=== PATIENT | female | born 1950 | race Caucasian/White ===

== ENCOUNTER 2020-09-28 09:59 | Outpatient (CLI) | payer MEDICARE, SELFPAY ==
--- NOTE | ~2020-09-28 | MR_ITS ---
EXAMINATION: MR cervical spine wo con DATE: 09/28/2020 11:08 INDICATION: Neck pain. TECHNIQUE: Magnetic resonance imaging (MRI) of the cervical spine was performed without intravenous c ontrast. Sequences included sagittal T2-weighted FSE, sagittal T2-weighted FS FSE, sagittal T1-weight ed FSE, axial MERGE, and axial T2-weighted FSE. COMPARISON: None FINDINGS: There is 2 mm anterolisthesis of C3 on C4 and C4 on C5. There is kyphosis of cervical spine . Vertebral body heights are normal. There is moderately decreased disc height at C5-C6 and C6-C7. Th e spinal cord signal intensity is normal. The following disc levels are specifically discussed: C2-C3: The disc does not extend beyond the endplate margin. There is no uncovertebral joint osteoarth ritis. There is moderate right and severe left facet joint osteoarthritis. There is mild left neural foraminal stenosis. There is no central canal stenosis. C3-C4: There is a central protrusion. There is no uncovertebral joint osteoarthritis. There is severe bilateral facet joint osteoarthritis. There is mild bilateral neural foraminal stenosis. There is mi ld central canal stenosis. C4-C5: There is a central protrusion. There is no uncovertebral joint osteoarthritis. There is severe right and mild left facet joint osteoarthritis. There is mild right neural foraminal stenosis. There is mild central canal stenosis. C5-C6: The disc is bulging. There is severe bilateral uncovertebral joint osteoarthritis. There is mi ld bilateral facet joint osteoarthritis. There is mild bilateral neural foraminal stenosis. There is mild central canal stenosis. C6-C7: The disc is bulging. There is severe bilateral uncovertebral joint osteoarthritis. There is no facet joint osteoarthritis. There is mild bilateral neural foraminal stenosis. There is mild central canal stenosis. C7-T1: The disc does not extend beyond the endplate margin. There is no uncovertebral joint osteoarth ritis. There is mild right and moderate left facet joint osteoarthritis. There is no neural foraminal stenosis. There is no central canal stenosis. IMPRESSION: 1. Moderate cervical spondylosis. Reviewed, dictated and finalized at location A. TILE INSTALLATION HELPER
--- NOTE | ~2020-09-28 | MR_ITS ---
EXAMINATION: MR lumbar spine wo con DATE: 09/28/2020 11:09 INDICATION: Low back pain. TECHNIQUE: Magnetic resonance imaging (MRI) of the lumbar spine was performed without intravenous con trast. Sequences included sagittal T2-weighted FSE, sagittal T2-weighted FS FSE, sagittal T1-weighted FSE, and axial T2-weighted FSE. COMPARISON: None FINDINGS: There is 3 mm retrolisthesis of L1 on L2, L2 on L3, and L3 on L4 and 5 mm anterolisthesis o f L5 on S1. There is mild chronic height loss of L5 vertebral body posteriorly. There is severely dec reased disc height at L1-L2, moderately decreased disc at L2-L3, mildly decreased disc height at L3-L 4, and moderately decreased disc height at L4-L5 and L5-S1. The distal spinal cord signal intensity i s normal. The conus medullaris is at L1. The following disc levels are specifically discussed: L1-L2: The disc is bulging. There is moderate bilateral facet joint osteoarthritis. There is mild viki ateral neural foraminal stenosis. There is mild central canal stenosis. L2-L3: The disc is bulging and has an annular fissure. There is moderate bilateral facet joint osteoa rthritis. There is mild bilateral neural foraminal stenosis. There is mild central canal stenosis. L3-L4: The disc is bulging and has an annular fissure. There is moderate bilateral facet joint osteoa rthritis. There is moderate bilateral neural foraminal stenosis. There is mild central canal stenosis . L4-L5: The disc is bulging. There is moderate right and severe left facet joint osteoarthritis. There is moderate bilateral neural foraminal stenosis. There is mild central canal stenosis. L5-S1: The disc is bulging and has an annular fissure. There is severe bilateral facet joint osteoart hritis. There is mild right and moderate left neural foraminal stenosis. There is mild central canal stenosis. IMPRESSION: 1. Severe lumbar spondylosis. Reviewed, dictated and finalized at location A. V BLOCK SAW OPERATOR
== END 2020-09-28 10:00 | disposition home or self-care (01) ==
PROVIDERS: PCP Internal Medicine; Visit Provider Internal Medicine Rheumatology
DX: M54.2 Cervicalgia (principal); M54.5 Low back pain
CPT/HCPCS: 72141; 72148

== ENCOUNTER 2020-11-25 18:39 | Outpatient (CLI) | payer MEDICARE, SELFPAY ==
--- NOTE | ~2020-11-25 | XR_ITS ---
EXAMINATION: XR hand LT 2V, XR wrist LT 2V EXAM DATE: 11/25/2020 19:22 (accession [id number]), 11/25/2020 19:23 (accession [id number]) INDICATION: Left hand, wrist joint pain. TECHNIQUE: Frontal and lateral projections of the left hand. Frontal and lateral projections left wr ist. There is no prior study for comparison. FINDINGS: There is severe left 1st carpometacarpal joint primary osteoarthritis, with 50% shaft width lateral subluxation of the 1st metacarpal bone at this joint. Otherwise mild polyarticular interphal angeal osteoarthritis. There is chronic ulnar minus variance. There are no acute fractures identified . No radiopaque foreign bodies identified. There are no bony erosions identified. IMPRESSION: 1. Severe left 1st CMC joint osteoarthritis, and significant subluxation. 2. Otherwise mild polyarticular phalangeal osteoarthritis. Reviewed, dictated and finalized at location A. COURSE EQUIPMENT OPERATOR IMPRESSION: 1. Severe left 1st CMC joint osteoarthritis, and significant subluxation. 2. Otherwise mild polyarticular phalangeal osteoarthritis.
--- NOTE | ~2020-11-25 | XR_ITS ---
EXAMINATION: XR hand RT 2V, XR wrist RT 2V EXAM DATE: 11/25/2020 19:22 INDICATION: Right hand joint pain. TECHNIQUE: Frontal and lateral projections of the right hand. Frontal lateral projections right wri st. There are no prior studies for comparison. FINDINGS: There is severe right 1st carpometacarpal primary osteoarthritis. There is mild polyartic ular interphalangeal primary osteoarthritis. Suspect scapholunate joint space widening, patient may h ave at least partial dissociation. There is ulnar minus variance. There are no bony erosions identifi ed. There are no acute fractures identified. No radiopaque foreign bodies identified. IMPRESSION: 1. Severe right 1st CMC joint osteoarthritis. 2. Mild interphalangeal polyarticular osteoarthritis. 3. 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 4. Ulnar minus variance. Reviewed, dictated and finalized at location A. S TIE MAKER IMPRESSION: 1. Severe right 1st CMC joint osteoarthritis. 2. Mild interphalangeal polyarticular osteoarthritis. 3. 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 4. Ulnar minus variance.
--- NOTE | ~2020-11-25 | XR_ITS ---
EXAMINATION: XR shoulder LT min 2V EXAM DATE: 11/25/2020 19:24 INDICATION: Initial encounter following injury, with pain of the left shoulder. TECHNIQUE: Left shoulder frontal and Y projections. Comparison is made to prior examination from 02/25. FINDINGS: Appearance to the acromioclavicular joint is most likely postoperative, correlate with any history since prior study in 2019. There is mild left glenohumeral joint primary osteoarthritis. The re are no acute fractures or dislocations identified. There is no subcutaneous gas. The soft tissue is unremarkable. There are no radiopaque foreign bodies. IMPRESSION: 1. Mild left glenohumeral joint osteoarthritis. 2. Probable interval acromioclavicular joint surgery. Reviewed, dictated and finalized at location A. PRESSURE KETTLE OPERATOR
--- NOTE | ~2020-11-25 | XR_ITS ---
EXAMINATION: XR shoulder RT min 2V EXAM DATE: 11/25/2020 19:24 INDICATION: No known recent injury provided at this time. Pain of the right shoulder. TECHNIQUE: Frontal, Y projections of the right shoulder. There is no prior study for comparison. FINDINGS: There is mild to moderate right acromioclavicular and glenohumeral primary osteoarthritis. There are no acute fractures or dislocations identified. There is no subcutaneous gas. The soft tis michael is unremarkable. There are no radiopaque foreign bodies. IMPRESSION: Mild to moderate right shoulder osteoarthritis. Reviewed, dictated and finalized at location A. ICULTURAL AGENT
--- NOTE | ~2020-11-25 | XR_ITS ---
EXAMINATION: XR ankle LT 2V, XR foot LT 2V EXAM DATE: 11/25/2020 19:23 INDICATION: Left foot, ankle pain. TECHNIQUE: Frontal and lateral projections of the left ankle. Frontal and lateral projections left f oot. There is no prior study for comparison. FINDINGS: Left ankle mortise is intact. There is mild polyarticular midfoot primary osteoarthritis. There are no acute fractures or dislocations identified. There is no subcutaneous gas. The soft tis michael is unremarkable. There are no radiopaque foreign bodies. There are no bony erosions identified . IMPRESSION: Mild polyarticular left midfoot osteoarthritis. Reviewed, dictated and finalized at location A. OLOGIST IMPRESSION: Mild polyarticular left midfoot osteoarthritis.
--- NOTE | ~2020-11-25 | XR_ITS ---
EXAMINATION: XR foot RT 2V, XR ankle RT 2V EXAM DATE: 11/25/2020 19:23 (accession [id number]), 11/25/2020 19:24 (accession [id number]) INDICATION: Right foot, ankle pain. TECHNIQUE: Frontal and lateral projections of the right foot. Frontal and lateral projections right ankle. There is no prior study for comparison. FINDINGS: The right ankle mortise is intact. Small inferior calcaneal spur. There is mild to moderat e 2nd, 3rd tarsometatarsal joint and mild polyarticular midfoot primary osteoarthritis. There is mild hallux valgus. There are no bony erosions identified. No periosteal reaction or band of sclerosis to suggest subacute stress fracture. IMPRESSION: Right midfoot osteoarthritis, 2nd, 3rd Lisfranc joint most affected. Mild hallux valgus. Reviewed, dictated and finalized at location A. CUTTER IMPRESSION: Right midfoot osteoarthritis, 2nd, 3rd Lisfranc joint most affected . Mild hallux valgus.
== END 2020-11-25 18:40 | disposition home or self-care (01) ==
LOC: CHSIMG 18:43
PROVIDERS: PCP Internal Medicine; Visit Provider Internal Medicine Rheumatology
DX: M25.532 Pain in left wrist (principal); M25.531 Pain in right wrist; M25.572 Pain in left ankle and joints of left foot; M25.571 Pain in right ankle and joints of right foot; M25.512 Pain in left shoulder; M25.511 Pain in right shoulder
CPT/HCPCS: 73030; 73100; 73120; 73600; 73620

== ENCOUNTER → 2021-04-25 02:09 | Outpatient (CLI) | payer MEDICARE, SELFPAY ==
[2021-04-25 18:15] LABS: SARS-CoV-2 RNA PCR Negative
== END ==
PROVIDERS: PCP Internal Medicine; Visit Provider Internal Medicine Gastroenterology
DX: Z01.812 Encounter for preprocedural laboratory examination (principal); Z20.822 Contact with and (suspected) exposure to COVID-19
CPT/HCPCS: C9803; U0003; U0005

== ENCOUNTER 2021-04-28 01:31 | Day surgery (SDC) | payer MEDICARE, SELFPAY ==
[2021-03-25 15:45] VITALS: BMI 31.9
[2021-04-25 12:13] VITALS: BMI 32.0
[2021-04-28 10:37] VITALS: BP 185/93; PULSE 61; RESP 18; TEMP 36.4; O2SAT 98
[2021-04-28] MEDS: LACTATED RINGERS 1,000 ML 150 ML IV CONT (10:43)
--- NOTE | 2021-04-28 11:06 | WPDANESEPPF ---
Anes - Initial Pre Proc Eval Procedure: Operation Date: 04/28/21 11:30 Proposed Procedures p Esophagogastroduodenoscopy and Screening Colonoscopy - Neo Delgado MD Date/Time: 04/28/21 11:06 Surgeon: Neo Delgado MD Pre Op Diagnosis: neoplasm screening, GERD Patient Data Age: 71 Gender: F Height: 1.6 m Weight: 83.7 kg Last Vital Signs Temp 36.4 C L 04/28/21 10:37 Pulse 61 04/28/21 10:37 Resp 18 04/28/21 10:37 BP 185/93 H 04/28/21 10:37 Pulse Ox 98 04/28/21 10:37 Allergies Allergy/AdvReac Type Severity Reaction Status Date / Time morphine AdvReac Intermediate Nausea Verified 04/28/21 10:36 Home Medications Medication Instructions Recorded Confirmed Type pravastatin 20 mg tablet 20 mg PO DAILY 11/02/19 04/28/21 History ranitidine HCl 150 mg tablet 150 mg PO DAILY 11/02/19 04/28/21 History ergocalciferol (vitamin D2) 50,000 unit PO MONTHLY 03/25/21 04/28/21 History folic acid 1 mg PO DAILY 03/25/21 04/28/21 History meloxicam 15 mg PO DAILY 03/25/21 04/28/21 History methotrexate sodium 7.5 mg PO WEEKLY 03/25/21 04/28/21 History pantoprazole 40 mg PO DAILY 03/25/21 04/28/21 History prednisone 10 mg PO DAILY 03/25/21 04/28/21 History Patient hx anesthesia problems: none Family hx anesthesia problems: none PMFSH Past Medical History Medical History (Updated 04/28/21 @ 11:08 by Gilbert Faria MD) Chronic GERD Hyperlipidemia Obesity Osteoarthritis Rheumatoid arthritis Family History Family History Sibling Malignant neoplasm of prostate Mother Family history of malignant neoplasm of breast in first degree relative Other Diabetes mellitus Family history of alcoholism Family history of arthritis Family history of malignant neoplasm Family history of mental disorder Social History Social History Smoking status: Never smoker Smoking end date: 11/22/86 Alcohol intake: never Substance use: never Substance use type: does not use Living arrangements: with family Gender identity (if verbalized by the patient): Female Spiritual care concerns: No Anes - Eval Final PreProcedure Day of Procedure 04/28/21 11:06 Patient weight: obese Heart: regular rate and rhythm Lungs: clear to auscultation and normal air movement Airway: Mallampati scale class II Neurological: alert and oriented Last oral intake: >/= 8 hours ASA classification: III Emergent: no Anesthetic plan: proceed Anesthesia type and monitoring: general GIVS Informed Consent: The patient's anesthetic plan and its attendant risks and benefits were discussed with the patient/family/POA. Questions were solicited and answers provided to the satisfaction of the patient/family/POA.
--- NOTE | 2021-04-28 11:22 | PM.HPGS ---
History of Present Illness History of Present Illness Consent: Risks, benefits, and alternatives have been discussed and questions answered. Patient agrees to proceed with procedure. Chief complaint: neoplasm screening, GERD Narrative: Arlin Gonzalez is a 71 year old female with gerd symptomatic despite pantoprazole but also using meloxicam, last colonoscopy over 10 years ago. Review of Systems Constitutional: Constitutional: Denies headache(s) and Denies weakness Eyes: Eyes: Denies blurry vision ENT: Reports Normal hearing present, Denies headache(s) and Denies neck pain Cardiovascular: Cardiovascular: Denies chest pain and Denies dyspnea Respiratory: Respiratory: Denies dyspnea Gastrointestinal: Gastrointestinal: Reports no additional gastrointestinal complaints Genitourinary: Genitourinary: Denies dysuria Musculoskeletal: Musculoskeletal: Denies neck pain Integumentary/Breasts: Skin/Breast: Denies dry skin Neurologic: Reports Normal hearing present, Denies headache(s) and Denies weakness Psychiatric: Psychiatric: Denies anxiety Endocrine: Endocrine: Denies change in body appearance Hematologic/Lymphatic: Hematologic/Lymphatic: Denies easy bleeding Allergic/Immunologic: Allergic/Immunologic: Denies urticaria PMFSH Past Medical History Medical History (Updated 04/28/21 @ 11:23 by Neo Delgado MD) Chronic GERD Colon cancer screening Hyperlipidemia Obesity Osteoarthritis Rheumatoid arthritis Family History Family History Sibling Malignant neoplasm of prostate Mother Family history of malignant neoplasm of breast in first degree relative Other Diabetes mellitus Family history of alcoholism Family history of arthritis Family history of malignant neoplasm Family history of mental disorder Social History Social History Smoking status: Never smoker Smoking end date: 11/22/86 Alcohol intake: never Substance use: never Substance use type: does not use Living arrangements: with family Gender identity (if verbalized by the patient): Female Spiritual care concerns: No Meds Home Medications and Allergies Home Medications Medication Instructions Recorded Confirmed Type pravastatin 20 mg tablet 20 mg PO DAILY 11/02/19 04/28/21 History ranitidine HCl 150 mg tablet 150 mg PO DAILY 11/02/19 04/28/21 History ergocalciferol (vitamin D2) 50,000 unit PO MONTHLY 03/25/21 04/28/21 History folic acid 1 mg PO DAILY 03/25/21 04/28/21 History meloxicam 15 mg PO DAILY 03/25/21 04/28/21 History methotrexate sodium 7.5 mg PO WEEKLY 03/25/21 04/28/21 History pantoprazole 40 mg PO DAILY 03/25/21 04/28/21 History prednisone 10 mg PO DAILY 03/25/21 04/28/21 History Allergies Allergy/AdvReac Type Severity Reaction Status Date / Time morphine AdvReac Intermediate Nausea Verified 04/28/21 10:36 Vital Signs Vital Signs - 24 hr 04/28/21 10:37 Temperature 97.5 F L Pulse Rate 61 Respiratory Rate 18 Blood Pressure 185/93 H Pulse Oximetry 98 Exam Const: General: comfortable and no acute distress HENMT: General nose exam: Normal nares present Eyes: General: appearance normal, both eyes and all related structures Neck: Neck: no JVD Resp: Auscultation: clear to auscultation bilaterally Cardio: Rate: regular rate Rhythm: regular rhythm GI: Inspection: non-distended GI Palp: Yes Soft to palpation Skin: General skin exam: normal color Neuro: General: gait normal Speech: normal speech Extrem: General: normal to inspection Psych: Mental Status: mental status grossly normal Assessment and Plan Assessment and plan (1) Chronic GERD: Code(s): K21.9 - Gastro-esophageal reflux disease without esophagitis Status: Acute Assessment and Plan: egd with bx (2) Colon cancer screening: Code(s): Z12.11 - Encounter for screening for
--- NOTE | 2021-04-28 11:49 | SUR.OPER ---
EGD ENDED 113, COLONOSCOPY STARTED 114
[2021-04-28 12:00] VITALS: BP 179/94; PULSE 60; RESP 19; O2SAT 99
[2021-04-28 12:10] VITALS: BP 170/122; PULSE 60; RESP 17; O2SAT 98
[2021-04-28 12:20] VITALS: BP 188/87; PULSE 61; RESP 14; O2SAT 98
== END 2021-04-28 12:35 | disposition home or self-care (01) ==
PROVIDERS: PCP Internal Medicine; Visit Provider Internal Medicine Gastroenterology
PROC: 0DJ08ZZ Inspection of Upper Intestinal Tract, Via Natural or Artificial Opening Endoscopic (ICD-10-PCS; CPT 43235; principal; 2021-04-28 11:30)
DX: Z12.11 Encounter for screening for malignant neoplasm of colon (principal); K63.5 Polyp of colon; K57.30 Diverticulosis of large intestine without perforation or abscess without bleeding; K64.8 Other hemorrhoids; K21.00 Gastro-esophageal reflux disease with esophagitis, without bleeding; K44.9 Diaphragmatic hernia without obstruction or gangrene; K29.70 Gastritis, unspecified, without bleeding; E78.5 Hyperlipidemia, unspecified; M06.9 Rheumatoid arthritis, unspecified; M19.90 Unspecified osteoarthritis, unspecified site; E66.9 Obesity, unspecified; Z68.32 Body mass index [BMI] 32.0-32.9, adult
CPT/HCPCS: 45380; 43239; 88305; C9803; J2704; J7120; U0003; U0005

== ENCOUNTER 2021-06-12 15:40 | Outpatient (CLI) | payer MEDICARE, SELFPAY ==
[2021-06-12 16:02] LABS: Hematocrit 39.9 % (35.0-42.0); Mean Corpuscular HGB Conc 32.6 g/dL (32.0-36.0); Mean Corpuscular Hemoglobin 30.6 pg (27.0-31.0); Mean Corpuscular Volume 93.9 fL (78.0-102.0); Mean Platelet Volume 11.9 fl (9.2-11.8); Platelet Count Result 238 K/mm3 (150-420); Red Blood Count 4.25 M/mm3 (4.20-5.40); Red Cell Distribution Width 13.2 % (11.6-14.4); White Blood Count 8.3 K/mm3 (4.8-10.8)
[2021-06-12 16:20] LABS: Basophils Absolute Auto 0.03 K/mm3 (0.00-0.10); Basophils Percent Auto 0.4 % (0.0-1.0); Eosinophils Absolute Auto 0.02 K/mm3 (0.02-0.50); Eosinophils Percent Auto 0.2 % (1.0-6.0); Immature Granulocyte Absolute 0.02 K/mm3 (0.00-0.00); Immature Granulocyte Percent A 0.2 % (0.0-0.0); Lymphocytes Absolute Auto 1.12 K/mm3 (1.10-4.50); Lymphocytes Percent Auto 13.8 % (18.0-42.0); Monocytes Absolute Auto 0.37 K/mm3 (0.10-0.90); Monocytes Percent Auto 4.6 % (2.0-11.0); Neutrophils Absolute Auto 6.6 K/mm3 (1.7-7.2); Neutrophils Percent Auto 80.8 % (50.0-70.0)
[2021-06-12 16:51] LABS: Alanine Aminotransferase 36 U/L (14-59); Albumin Level 3.7 g/dL (3.4-5.0); Alkaline Phosphatase 86 U/L (46-116); Anion Gap 12 mmol/L (8-16); Aspartate Amino Transferase 16 U/L (15-37); Bilirubin Direct 0.1 mg/dL (0-0.2); Bilirubin,Total 0.3 mg/dL (0.00-1.00); Blood Urea Nitrogen 20 mg/dL (7-18); Carbon Dioxide 27 mmol/L (21-32); Chloride 105 mmol/L (98-108); Estimated Glomerular Filt Rate 55; Glucose 116 mg/dL (70-99); Osmolality Calculated 301 mOsm/kg (285-295); Potassium 4.7 mmol/L (3.5-5.1); Sodium 144 mmol/L (136-145); Total Protein 7.1 g/dL (6.4-8.2)
== END 2021-06-12 15:41 | disposition home or self-care (01) ==
PROVIDERS: PCP Internal Medicine Rheumatology; Visit Provider Internal Medicine Rheumatology
DX: Z51.81 Encounter for therapeutic drug level monitoring (principal)
CPT/HCPCS: 36415; 80048; 80076; 85025

== ENCOUNTER 2021-08-12 10:48 | Outpatient (CLI) | payer MEDICARE, SELFPAY ==
[2021-08-15 19:41] LABS: Hepatitis B Core Ab Total Nonreactive (Nonreactive)
[2021-08-15 19:42] LABS: Hepatitis B Surface Antibody Nonreactive (Nonreactive); Hepatitis B Surface Antigen Nonreactive (Nonreactive); Hepatitis C Signal to Cutoff 0.01 ratio (<1.00); Hepatitis C Virus Antibody Nonreactive (Nonreactive)
[2021-08-15 21:03] LABS: Hepatitis B DNA PCR <1.00 Log IU/mL; Hepatitis B DNA PCR <10 IU/mL
[2021-08-19 12:34] LABS: NIL 0.02; Quantiferon TB Plus, 1T NEGATIVE
[2021-08-19 12:37] LABS: TB2-NIL <0.00
== END 2021-08-12 10:49 | disposition home or self-care (01) ==
LOC: CHSLAB 10:51
PROVIDERS: PCP Internal Medicine; Visit Provider Internal Medicine Rheumatology
DX: Z11.59 Encounter for screening for other viral diseases (principal); Z51.81 Encounter for therapeutic drug level monitoring
CPT/HCPCS: 36415; 86480; 86704; 86706; 87517

== ENCOUNTER 2021-09-10 11:33 | Outpatient (CLI) | payer MEDICARE, SELFPAY ==
[2021-09-10 13:11] LABS: Cholesterol 247 mg/dL (0-200); HDL Direct 57 mg/dL (40-60); LDL Cholesterol Calculated 163 mg/dL (<130); Triglycerides 133 mg/dL (0-150)
== END 2021-09-10 11:34 | disposition home or self-care (01) ==
LOC: CHSLAB 11:35
PROVIDERS: PCP Internal Medicine; Visit Provider Internal Medicine
DX: E78.5 Hyperlipidemia, unspecified (principal)
CPT/HCPCS: 36415; 80061

== ENCOUNTER 2021-10-20 12:21 | Outpatient (CLI) | payer MEDICARE, SELFPAY ==
--- NOTE | ~2021-10-20 | MM_ITS ---
EXAMINATION: MM screening devyn BI w shanita HISTORY: Screening mammogram TECHNIQUE: Craniocaudal and mediolateral oblique 3-D tomosynthesis images were obtained and synthetic 2-D images were generated. CAD analysis was submitted and interpreted. COMPARISON: Numerous bilateral screening mammogram 08/14/2016 right breast ultrasound 06/29/2016 bilateral screening mammogram BREAST PARENCHYMAL COMPOSITION: There are scattered areas of fibroglandular density. FINDINGS: New approximately 3.3 x 5.9 mm circumscribed opacity in the inner mid to lower right breast (craniocaudal Tomosynthesis image 40/79). Diagnostic right mammogram and right breast ultrasound exa mination are recommended. Otherwise there is no evidence of suspicious mass, calcification, or architectural distortion to sugg est malignancy in either breast. There has been no other suspicious interval change. IMPRESSION: 1. New 3.3 x 5.9 mm circumscribed mass in inner mid to lower right breast 2. Diagnostic right mammogram and right breast ultrasound examination are recommended. BI-RADS Category 0: Incomplete: Needs additional imaging evaluation. Reviewed, dictated and finalized at location A. STOS PIPE SUPERVISOR IMPRESSION: 1. New 3.3 x 5.9 mm circumscribed mass in inner mid to lower right breast 2. Diagnostic right mammogram and right breast ultrasound examination are recom mended. BI-RADS Category 0: Incomplete: Needs additional imaging evaluation.
== END 2021-10-20 12:22 | disposition home or self-care (01) ==
LOC: CHSIMG 12:22
PROVIDERS: PCP Internal Medicine; Visit Provider Internal Medicine
DX: Z12.31 Encounter for screening mammogram for malignant neoplasm of breast (principal)
CPT/HCPCS: 77063; 77067

== ENCOUNTER 2021-10-28 08:55 | Outpatient (CLI) | payer MEDICARE, SELFPAY ==
--- NOTE | ~2021-10-28 | MMUS_ITS ---
EXAMINATION: MM diagnostic devyn RT w shanita, US breast RT complete HISTORY: Abnormal screening mammogram TECHNIQUE: Additional 3-D tomosynthesis images of the right breast were performed and synthetic 2-D i mages were generated. CAD analysis was submitted and interpreted. High resolution Limited right breas t ultrasound was performed. COMPARISON: Comparison to multiple prior studies sequentially, with oldest reviewed study dated 12/2011. BREAST PARENCHYMAL COMPOSITION: Breast composed of scattered areas of fibroglandular density. FINDINGS: MAMMOGRAPHIC FINDINGS: There is a circumscribed radiolucent 5 mm mass in the lower medial right breast. There are no suspici ous calcifications or architectural distortion. ULTRASOUND: Limited right breast ultrasound: At 12:00 near the nipple there is an oval hypoechoic mass measuring 5 x 3 x 4 mm with circumscribed margins, parallel orientation, no posterior features and no internal vascularity, likely benign. At 2:00, 5 cm from the nipple, there is a cluster of microcysts measuring 6 mm maximum dimension. IMPRESSION: 1. Probable benign right breast findings. 2. Recommend 6 month follow-up diagnostic right mammogram and ultrasound BI-RADS Category 0: Incomplete: Needs additional imaging evaluation. Reviewed, dictated and finalized at location A. NE BANKING SPECIALIST IMPRESSION: 1. Probable benign right breast findings. 2. Recommend 6 month follow-up diagnostic right mammogram and ultrasound BI-RADS Category 0: Incomplete: Needs additional imaging evaluation.
== END 2021-10-28 08:56 | disposition home or self-care (01) ==
LOC: CHSIMG 08:56
PROVIDERS: PCP Internal Medicine; Visit Provider Internal Medicine
DX: R92.8 Other abnormal and inconclusive findings on diagnostic imaging of breast (principal)
CPT/HCPCS: 76641; 77061; 77065; G0279

== ENCOUNTER 2022-02-06 11:15 | Outpatient (CLI) | payer MEDICARE, SELFPAY ==
[2022-02-06 11:29] LABS: Basophils Absolute Auto 0.03 K/mm3 (0.00-0.10); Basophils Percent Auto 0.5 % (0.0-1.0); Eosinophils Absolute Auto 0.18 K/mm3 (0.02-0.50); Eosinophils Percent Auto 3.2 % (1.0-6.0); Hematocrit 42.6 % (35.0-42.0); Hemoglobin 13.9 g/dL (11.7-13.8); Immature Granulocyte Absolute 0.01 K/mm3 (0.00-0.00); Immature Granulocyte Percent A 0.2 % (0.0-0.0); Lymphocytes Absolute Auto 1.73 K/mm3 (1.10-4.50); Lymphocytes Percent Auto 30.7 % (18.0-42.0); Mean Corpuscular HGB Conc 32.6 g/dL (32.0-36.0); Mean Corpuscular Volume 94.9 fL (78.0-102.0); Mean Platelet Volume 11.4 fl (9.2-11.8); Monocytes Absolute Auto 0.48 K/mm3 (0.10-0.90); Monocytes Percent Auto 8.5 % (2.0-11.0); Neutrophils Absolute Auto 3.2 K/mm3 (1.7-7.2); Neutrophils Percent Auto 56.9 % (50.0-70.0); Platelet Count Result 240 K/mm3 (150-420); Red Blood Count 4.49 M/mm3 (4.20-5.40); Red Cell Distribution Width 13.7 % (11.6-14.4); White Blood Count 5.6 K/mm3 (4.8-10.8)
[2022-02-06 11:32] LABS: Add Urine Microscopic? NO; Appearance Urine Clear (Clear); Bilirubin Urine Negative (Negative); Blood Urine Negative (Negative); Color Urine Yellow (Yellow); Glucose Urine UA Negative (Negative); Ketones Urine Negative (Negative); Leukocyte Esterase Ur Negative (Negative); Nitrate Urine Negative (Negative); Protein Urine Negative (Negative); Urobilinogen Urine 0.2 mg/dL (0.2-1.0)
[2022-02-06 12:12] LABS: Alanine Aminotransferase 37 U/L (14-59); Albumin Level 3.6 g/dL (3.4-5.0); Alkaline Phosphatase 118 U/L (46-116); Anion Gap 8 mmol/L (8-16); Aspartate Amino Transferase 20 U/L (15-37); Bilirubin,Total 0.5 mg/dL (0.00-1.00); Blood Urea Nitrogen 15 mg/dL (7-18); CRP < 0.5 mg/dL (0.0-0.9); Calcium 9.1 mg/dL (8.5-10.1); Carbon Dioxide 28 mmol/L (21-32); Chloride 105 mmol/L (98-108); Cholesterol 249 mg/dL (0-200); Estimated Glomerular Filt Rate > 60; Glucose 94 mg/dL (70-99); HDL Direct 63 mg/dL (40-60); LDL Cholesterol Calculated 157 mg/dL (<130); Osmolality Calculated 292 mOsm/kg (285-295); Potassium 4.3 mmol/L (3.5-5.1); Sodium 141 mmol/L (136-145); Thyroid Stimulating Hormone 4.19 uIU/mL (0.36-3.74); Total Protein 7.1 g/dL (6.4-8.2); Triglycerides 143 mg/dL (0-150)
== END 2022-02-06 11:16 | disposition home or self-care (01) ==
LOC: CHSLAB 11:18
PROVIDERS: PCP Internal Medicine; Visit Provider Internal Medicine
DX: E78.5 Hyperlipidemia, unspecified (principal); Z00.00 Encounter for general adult medical examination without abnormal findings; M05.9 Rheumatoid arthritis with rheumatoid factor, unspecified
CPT/HCPCS: 36415; 80053; 80061; 81003; 84443; 85025; 86140

== ENCOUNTER 2022-02-20 01:10 | Day surgery (SDC) | payer MEDICARE, SELFPAY ==
[2021-12-09 14:08] VITALS: BMI 33.5
[2022-02-11 14:38] VITALS: BMI 33.5
--- NOTE | 2022-02-20 08:40 | P.PNAN_ITS ---
Anes - Initial Pre Proc Eval Procedure: Operation Date: 02/20/22 11:00 Proposed Procedures p Esophagogastroduodenoscopy - Neo Delgado MD Date/Time: 02/20/22 08:40 Surgeon: Neo Delgado MD Pre Op Diagnosis: gastric ulcer, esophagitis Patient Data Age: 71 Gender: F Height: 1.6 m Weight: 86 kg Allergies Allergy/AdvReac Type Severity Reaction Status Date / Time morphine Allergy Intermediate Nausea Verified 02/12/22 13:55 Home Medications Medication Instructions Recorded Confirmed Type folic acid 1 mg PO DAILY 03/25/21 02/12/22 History meloxicam 15 mg PO DAILY 03/25/21 02/12/22 History methotrexate sodium 7.5 mg PO WEEKLY 03/25/21 02/12/22 History pantoprazole 40 mg PO BID 02/11/22 02/12/22 History atorvastatin 40 mg tablet 40 mg PO QHS #30 tablet 02/12/22 02/20/22 Rx Patient hx anesthesia problems: none Family hx anesthesia problems: none Results Review: All pre-operative results and documents have been reviewed as part of the pre-operative evaluation. [facility] Past Medical History Medical History Chronic GERD Colon cancer screening Hyperlipidemia Obesity Osteoarthritis Rheumatoid arthritis Family History Family History Sibling Malignant neoplasm of prostate Mother Family history of malignant neoplasm of breast in first degree relative Other Diabetes mellitus Family history of alcoholism Family history of arthritis Family history of malignant neoplasm Family history of mental disorder Social History Social History (Reviewed 02/12/22 @ 13:55 by Aleksandra Hassan [facility]) Smoking packs per day: 1 Smoking cigarettes per day: 20.0 Years smoked: 7 Smoking pack-years: 7.00 Smoking status: Former smoker Tobacco type: cigarettes Smoking end date: 11/22/86 Alcohol intake: never Substance use: never Substance use type: does not use Living arrangements: with family Gender identity (if verbalized by the patient): Female Spiritual care concerns: No Anes - Eval Final PreProcedure Day of Procedure 02/20/22 08:40 Patient weight: obese Heart: regular rate and rhythm Lungs: clear to auscultation and normal air movement Airway: Mallampati scale class II Neurological: alert and oriented Last oral intake: >/= 8 hours ASA classification: III Emergent: no Anesthetic plan: proceed Anesthesia type and monitoring: general GIVS Results Review: All pre-operative results and documents have been reviewed as part of the pre-operative evaluation. Informed Consent: The patient's anesthetic plan and its attendant risks and benefits were discussed with the patient/family/POA. Questions were solicited and answers provided to the satisfaction of the patient/family/POA.
[2022-02-20 09:42] VITALS: BP 152/92; PULSE 65; RESP 18; TEMP 36.1; O2SAT 99; BMI 33.6
[2022-02-20] MEDS: LACTATED RINGERS 1,000 ML 150 ML IV CONT (09:50)
--- NOTE | 2022-02-20 10:13 | PM.HPGS ---
History of Present Illness History of Present Illness Consent: Risks, benefits, and alternatives have been discussed and questions answered. Patient agrees to proceed with procedure. Chief complaint: gastric ulcer, esophagitis Narrative: Arlin Gonzalez is a 71 year old female with reflux esophagitis on pantoprazole bid, here to assess for healing. Review of Systems Constitutional: Constitutional: Denies headache(s) and Denies weakness Eyes: Eyes: Denies blurry vision ENT: Reports Normal hearing present, Denies headache(s) and Denies neck pain Cardiovascular: Cardiovascular: Denies chest pain and Denies dyspnea Respiratory: Respiratory: Denies dyspnea Gastrointestinal: Gastrointestinal: Reports no additional gastrointestinal complaints Genitourinary: Genitourinary: Denies dysuria Musculoskeletal: Musculoskeletal: Denies neck pain Integumentary/Breasts: Skin/Breast: Denies dry skin Neurologic: Reports Normal hearing present, Denies headache(s) and Denies weakness Psychiatric: Psychiatric: Denies anxiety Endocrine: Endocrine: Denies change in body appearance Hematologic/Lymphatic: Hematologic/Lymphatic: Denies easy bleeding Allergic/Immunologic: Allergic/Immunologic: Denies urticaria [facility] Past Medical History Medical History (Updated 02/20/22 @ 10:14 by Neo Delgado MD) Chronic GERD Colon cancer screening Hyperlipidemia Obesity Osteoarthritis Reflux esophagitis Rheumatoid arthritis Family History Family History Sibling Malignant neoplasm of prostate Mother Family history of malignant neoplasm of breast in first degree relative Other Diabetes mellitus Family history of alcoholism Family history of arthritis Family history of malignant neoplasm Family history of mental disorder Social History Social History Smoking packs per day: 1 Smoking cigarettes per day: 20.0 Years smoked: 7 Smoking pack-years: 7.00 Smoking status: Former smoker Tobacco type: cigarettes Smoking end date: 11/22/86 Alcohol intake: never Substance use: never Substance use type: does not use Living arrangements: with family Gender identity (if verbalized by the patient): Female Spiritual care concerns: No Meds Home Medications and Allergies Home Medications Medication Instructions Recorded Confirmed Type folic acid 1 mg PO DAILY 03/25/21 02/12/22 History meloxicam 15 mg PO DAILY 03/25/21 02/12/22 History methotrexate sodium 7.5 mg PO WEEKLY 03/25/21 02/12/22 History pantoprazole 40 mg PO BID 02/11/22 02/12/22 History atorvastatin 40 mg tablet 40 mg PO QHS #30 tablet 02/12/22 02/20/22 Rx Allergies Allergy/AdvReac Type Severity Reaction Status Date / Time morphine Allergy Intermediate Nausea Verified 02/12/22 13:55 Vital Signs Vital Signs - 24 hr 02/20/22 09:42 Temperature 97 F L Pulse Rate 65 Respiratory Rate 18 Blood Pressure 152/92 H Pulse Oximetry 99 Exam Const: General: comfortable and no acute distress HENMT: General nose exam: Normal nares present Eyes: General: appearance normal, both eyes and all related structures Neck: Neck: no JVD Resp: Auscultation: clear to auscultation bilaterally Cardio: Rate: regular rate Rhythm: regular rhythm GI: Inspection: non-distended GI Palp: Yes Soft to palpation Skin: General skin exam: normal color Neuro: General: gait normal Speech: normal speech Extrem: General: normal to inspection Psych: Mental Status: mental status grossly normal Assessment and Plan Assessment and plan (1) Reflux esophagitis: Code(s): K21.00 - Gastro-esophageal reflux disease with esophagitis, without bleeding Status: Acute Assessment and Plan: egd to assess healing, already on ppi
[2022-02-20 10:35] VITALS: BP 134/77; PULSE 59; RESP 16; O2SAT 98
[2022-02-20 10:45] VITALS: BP 148/82; PULSE 54; RESP 15; O2SAT 99
[2022-02-20 10:55] VITALS: BP 171/86; PULSE 61; RESP 25; O2SAT 96
== END 2022-02-20 11:13 | disposition home or self-care (01) ==
PROVIDERS: PCP Internal Medicine; Visit Provider Internal Medicine Gastroenterology
PROC: 0DJ08ZZ Inspection of Upper Intestinal Tract, Via Natural or Artificial Opening Endoscopic (ICD-10-PCS; CPT 43235; principal; 2022-02-20 11:00)
DX: K21.00 Gastro-esophageal reflux disease with esophagitis, without bleeding (principal); K22.70 Barrett's esophagus without dysplasia; K44.9 Diaphragmatic hernia without obstruction or gangrene; E78.5 Hyperlipidemia, unspecified; M06.9 Rheumatoid arthritis, unspecified; M19.90 Unspecified osteoarthritis, unspecified site; E66.9 Obesity, unspecified; Z68.33 Body mass index [BMI] 33.0-33.9, adult; Z87.891 Personal history of nicotine dependence
CPT/HCPCS: 43239; 88305; J2001; J2704; J7120

== ENCOUNTER 2022-07-07 07:37 | Outpatient (CLI) | payer MEDICARE, SELFPAY ==
--- NOTE | 2022-07-07 07:43 | EST_ITS ---
Patient Info Name: Arlin Gonzalez Age: 72 years : 1950 Gender: Female Ht: 63 in Wt: 190 lbs BSA: 1.99 m2 Exam Date: 07/07/2022 9:00 AM Exam Location: [facility] Stress Patient Status: Outpatient Admit Date: 07/07/2022 Staff Ordering Physician: Enrique Greene DO Attending Provider: Enrique Greene DO Exercise Technologist: Jinny Negrete RDCS Exercise Physician: Enrique rGeene DO Exam Type: CA stress test treadmill Study Info Indications R07.9 - Chest pain, unspecified R06.09 - Other forms of dyspnea A treadmill exercise stress test was performed. Summary 1. 1. Negative Randall exercise stress test for ischemic ST changes by ECG criteria. 2. 2. Reduced functional capacity, achieving 6.8 METs of workload. 3. 3. Rate related RBBB. 4. 4. Baseline hypertension with hypertensive response to exercise. 5. 5. Appropriate HR response to exercise. 6. 6. Appropriate HR recovery at 1 minute post exercise. 7. 7. No imaging with stress testing. 8. 8. Patient informed of the above results. Protocol: Randall Stress ECG Details Stage: REST Duration (min): 4 min : 6 sec Speed (mph): 0.0 Grade (%): 0 HR (bpm): 61 SBP (mmHg): 190 DBP (mmHg): 99 METS: --- Stage: REST Duration (min): 7 min : 21 sec Speed (mph): 0.0 Grade (%): 0 HR (bpm): 48 SBP (mmHg): 190 DBP (mmHg): 99 METS: --- Stage: STAGE 1 Duration (min): 1 min : 0 sec Speed (mph): 1.7 Grade (%): 10 HR (bpm): 105 SBP (mmHg): 190 DBP (mmHg): 99 METS: --- Stage: STAGE 1 Duration (min): 2 min : 0 sec Speed (mph): 1.7 Grade (%): 10 HR (bpm): 116 SBP (mmHg): 190 DBP (mmHg): 99 METS: --- Stage: STAGE 1 Duration (min): 3 min : 0 sec Speed (mph): 1.7 Grade (%): 10 HR (bpm): 120 SBP (mmHg): 227 DBP (mmHg): 126 METS: --- Stage: STAGE 2 Duration (min): 1 min : 0 sec Speed (mph): 2.5 Grade (%): 12 HR (bpm): 130 SBP (mmHg): 227 DBP (mmHg): 126 METS: --- Stage: STAGE 2 Duration (min): 1 min : 10 sec Speed (mph): 2.5 Grade (%): 12 HR (bpm): 132 SBP (mmHg): 227 DBP (mmHg): 126 METS: --- Stage: RECOVERY Duration (min): 0 min : 49 sec Speed (mph): 0.0 Grade (%): 0 HR (bpm): 118 SBP (mmHg): 229 DBP (mmHg): 120 METS: --- Stage: RECOVERY Duration (min): 1 min : 49 sec Speed (mph): 0.0 Grade (%): 0 HR (bpm): 87 SBP (mmHg): 219 DBP (mmHg): 117 METS: --- Stage: RECOVERY Duration (min): 2 min : 49 sec Speed (mph): 0.0 Grade (%): 0 HR (bpm): 79 SBP (mmHg): 210 DBP (mmHg): 113 METS: --- Stage: RECOVERY Duration (min): 3 min : 49 sec Speed (mph): 0.0 Grade (%): 0 HR (bpm): 83 SBP (mmHg): 210 DBP (mmHg): 113 METS: --- Stage: RECOVERY Duration (min): 4 min : 49 sec Speed (mph): 0.0 Grade (%): 0 HR (bpm): 79 SBP (mmHg): 203 DBP
--- NOTE | 2022-07-07 07:43 | ECHO_ITS ---
Patient Info Name: Arlin Gonzalez Age: 72 years : 1950 Gender: Female Ht: 63 in Wt: 190 lbs BSA: 1.99 m2 HR: 63 bpm BP: 180 / 105 mmHg Technical Quality: Fair Exam Date: 07/07/2022 8:33 AM Exam Location: [facility] Patient Status: Outpatient Admit Date: 07/07/2022 Staff Ordering Physician: Enrique Greene DO Oyster Preparer: Leodan Cheung RDCS, RT Attending Provider: Enrique Greene DO Referring Physician: Jc HARRINGTON; Exam Type: CA echo doppler color flow Study Info Indications R06.02 - Shortness of breath Complete two-dimensional, color flow and Doppler transthoracic echocardiogram is performed. Strain analysis performed. Summary 1. Complete two-dimensional, color flow and Doppler transthoracic echocardiogram is performed. 2. Left ventricular chamber dimension is normal. 3. Left ventricular systolic function is normal, estimated at 60-65%. 4. There is mildly increased left ventricular wall thickness. 5. The left ventricular diastolic function is grade II diastolic dysfunction. 6. E/e' 10 is mildly elevated. 7. Global longitudinal strain is normal at -18.1%. 8. Right atrial chamber dimension is mildly enlarged. 9. There is severe aortic valve sclerosis. 10. There is mild to moderate aortic valve stenosis with a peak velocity of 227 cm/s, mean gradient of 10 mmHg, and aortic valve area of 1.6 cm2. 11. There is mild tricuspid valve regurgitation. 12. No pulmonary hypertension, estimated pulmonary arterial systolic pressure is 33 mmHg. Left Ventricle E/e' 10 is mildly elevated. Global longitudinal strain is normal at -18.1%. Left ventricular chamber dimension is normal. Left ventricular systolic function is normal, estimated at 60-65%. There is mildly increased left ventricular wall thickness. The left ventricular diastolic function is grade II diastolic dysfunction. Right Ventricle Right ventricular chamber dimension is normal. Right ventricular systolic function is normal. Left Atria Left atrial chamber dimension is normal. Right Atria Right atrial chamber dimension is mildly enlarged. Aortic Valve The aortic valve is trileaflet. There is severe aortic valve sclerosis. There is mild to moderate aortic valve stenosis with a peak velocity of 227 cm/s, mean gradient of 10 mmHg, and aortic valve area of 1.6 cm2. There is no aortic valve regurgitation. Pulmonic Valve There is no pulmonic regurgitation. Mitral Valve There is no mitral valve stenosis. There is no mitral valve regurgitation. Tricuspid Valve There is mild tricuspid valve regurgitation. No pulmonary hypertension, estimated pulmonary arterial systolic pressure is 33 mmHg. Pericardium/Pleural There is no pericardial effusion. Inferior Vena Cava Normal inferior vena cava with >50% collapse upon inspiration consistent with normal right atrial pressure, 5 mmHg. Aorta The aortic root size at the sinus of Valsalva is normal. Left Ventricular Outflow Tract Name Value Normal LVOT 2D LVOT Diameter 2.0 cm LVOT Doppler LVOT Peak Gradient 4 mmHg LVOT Mean Gradient 2
== END 2022-07-07 07:38 | disposition home or self-care (01) ==
LOC: ANHCARD 07:40
PROVIDERS: PCP Internal Medicine; Visit Provider Internal Medicine Cardiovascular Disease
DX: R07.9 Chest pain, unspecified (principal); R06.00 Dyspnea, unspecified; I36.1 Nonrheumatic tricuspid (valve) insufficiency; I34.0 Nonrheumatic mitral (valve) insufficiency; I35.1 Nonrheumatic aortic (valve) insufficiency
CPT/HCPCS: 93017; 93306

== ENCOUNTER 2022-07-22 10:20 | Outpatient (CLI) | payer MEDICARE, SELFPAY ==
[2022-07-22 10:49] LABS: Cholesterol 182 mg/dL (0-200); HDL Direct 64 mg/dL (40-60); LDL Cholesterol Calculated 94 mg/dL (<130); Triglycerides 121 mg/dL (0-150)
== END 2022-07-22 10:21 | disposition home or self-care (01) ==
LOC: CHSLAB 10:23
PROVIDERS: PCP Internal Medicine; Visit Provider Internal Medicine Cardiovascular Disease
DX: E78.5 Hyperlipidemia, unspecified (principal)
CPT/HCPCS: 36415; 80061

== ENCOUNTER 2022-08-03 11:14 | Outpatient (CLI) | payer MEDICARE, SELFPAY ==
[2022-08-03 12:26] LABS: Influenza A QL RT-PCR Negative (Negative); Influenza B QL RT-PCR Negative (Negative); SARS-CoV-2 RNA PCR Positive (Negative)
== END 2022-08-03 11:15 | disposition home or self-care (01) ==
LOC: CHSLAB 11:16
PROVIDERS: PCP Internal Medicine; Visit Provider Nurse Practitioner Family
DX: U07.1 COVID-19 (principal); J06.9 Acute upper respiratory infection, unspecified
CPT/HCPCS: 87502; C9803; U0003; U0005

== ENCOUNTER 2022-08-10 13:36 | Outpatient (CLI) | payer MEDICARE, SELFPAY ==
[2022-08-10 15:01] LABS: SARS-CoV-2 Ag Negative (Negative)
== END 2022-08-10 13:37 | disposition home or self-care (01) ==
LOC: CHSLAB 13:39
PROVIDERS: PCP Internal Medicine; Visit Provider Internal Medicine
DX: Z20.822 Contact with and (suspected) exposure to COVID-19 (principal)
CPT/HCPCS: 87426; C9803

== ENCOUNTER 2022-10-01 15:38 | Outpatient (CLI) | payer MEDICARE, SELFPAY ==
--- NOTE | ~2022-10-01 | XR_ITS ---
XR chest 2V DATE: 10/01/2022 16:06 INDICATION: Chronic cough. Esophageal reflux. TECHNIQUE: 2 views COMPARISON: None FINDINGS: Normal heart size. No hilar or mediastinal enlargement. No pulmonary infiltrate or consolidation, pleural effusion or pulmonary vascular congestion or pneumo thorax. Osteopenia. Minimal thoracolumbar dextroscoliosis. Mild degenerative spurring of the thoracic spine. Multilevel degenerative disc disease of the lumbar spine. IMPRESSION: No active cardiopulmonary disease Reviewed, dictated and finalized at location A. OGICAL SURVEY FIELD ASSISTANT
[2022-10-01 15:58] LABS: Basophils Absolute Auto 0.03 K/mm3 (0.00-0.10); Basophils Percent Auto 0.3 % (0.0-1.0); Eosinophils Absolute Auto 0.31 K/mm3 (0.02-0.50); Eosinophils Percent Auto 3.5 % (1.0-6.0); Hematocrit 35.9 % (35.0-42.0); Hemoglobin 11.8 g/dL (11.7-13.8); Immature Granulocyte Absolute 0.04 K/mm3 (0.00-0.00); Immature Granulocyte Percent A 0.5 % (0.0-0.0); Lymphocytes Percent Auto 24.8 % (18.0-42.0); Mean Corpuscular HGB Conc 32.9 g/dL (32.0-36.0); Mean Corpuscular Hemoglobin 31.4 pg (27.0-31.0); Mean Corpuscular Volume 95.5 fL (78.0-102.0); Mean Platelet Volume 10.6 fl (9.2-11.8); Monocytes Absolute Auto 0.65 K/mm3 (0.10-0.90); Monocytes Percent Auto 7.3 % (2.0-11.0); Neutrophils Absolute Auto 5.7 K/mm3 (1.7-7.2); Neutrophils Percent Auto 63.6 % (50.0-70.0); Platelet Count Result 279 K/mm3 (150-420); Red Blood Count 3.76 M/mm3 (4.20-5.40); Red Cell Distribution Width 13.2 % (11.6-14.4); White Blood Count 8.9 K/mm3 (4.8-10.8)
[2022-10-01 17:17] LABS: Alanine Aminotransferase 32 U/L (14-59); Albumin Level 3.6 g/dL (3.4-5.0); Alkaline Phosphatase 107 U/L (46-116); Anion Gap 8 mmol/L (8-16); Aspartate Amino Transferase 17 U/L (15-37); Bilirubin,Total 0.4 mg/dL (0.00-1.00); Blood Urea Nitrogen 16 mg/dL (7-18); Calcium 8.5 mg/dL (8.5-10.1); Carbon Dioxide 29 mmol/L (21-32); Chloride 97 mmol/L (98-108); Estimated Glomerular Filt Rate 46; Glucose 102 mg/dL (70-99); Osmolality Calculated 279 mOsm/kg (285-295); Potassium 3.9 mmol/L (3.5-5.1); Sodium 134 mmol/L (136-145); Thyroid Stimulating Hormone 3.45 uIU/mL (0.36-3.74); Total Protein 7.1 g/dL (6.4-8.2)
== END 2022-10-01 15:39 | disposition home or self-care (01) ==
LOC: CHSLAB 15:48
PROVIDERS: PCP Internal Medicine; Visit Provider Internal Medicine
DX: R05.3 Chronic cough (principal); K21.9 Gastro-esophageal reflux disease without esophagitis; R53.83 Other fatigue
CPT/HCPCS: 36415; 71046; 80053; 84443; 85025

== ENCOUNTER 2022-10-13 08:45 | Outpatient (CLI) | payer MEDICARE, SELFPAY ==
--- NOTE | ~2022-10-13 | XR_ITS ---
EXAMINATION: XR UGIAC w barium swallow DATE: 10/13/2022 10:27 INDICATION: Chronic cough with swallowing TECHNIQUE: Thick barium contrast with gas effervescent crystals were administered orally. Fluoroscop ic images of the esophagus, stomach, and proximal duodenum were obtained in various projections. The reafter, overhead images of the abdomen were performed. 1.1 minutes of fluroscopy. DAP 16.6. 41 image s. FINDINGS: There is a small sliding hiatal hernia with gastroesophageal reflux The gastric folds are normal. There are multiple small bowel diverticula. IMPRESSION: 1. Small sliding hiatal hernia with gastroesophageal reflux. 2: Small bowel diverticula. Reviewed, dictated and finalized at location B. F INTERPRETER
== END 2022-10-13 08:46 | disposition home or self-care (01) ==
PROVIDERS: PCP Internal Medicine; Visit Provider Internal Medicine
DX: R05.9 Cough, unspecified (principal); K21.9 Gastro-esophageal reflux disease without esophagitis
CPT/HCPCS: 74246

== ENCOUNTER 2022-10-16 12:43 | Outpatient (CLI) | payer MEDICARE, SELFPAY ==
[2022-10-16 12:58] LABS: Basophils Absolute Auto 0.04 K/mm3 (0.00-0.10); Basophils Percent Auto 0.5 % (0.0-1.0); Eosinophils Percent Auto 1.3 % (1.0-6.0); Hematocrit 37.3 % (35.0-42.0); Hemoglobin 12.4 g/dL (11.7-13.8); Immature Granulocyte Absolute 0.02 K/mm3 (0.00-0.00); Immature Granulocyte Percent A 0.3 % (0.0-0.0); Lymphocytes Absolute Auto 1.76 K/mm3 (1.10-4.50); Lymphocytes Percent Auto 23.7 % (18.0-42.0); Mean Corpuscular HGB Conc 33.2 g/dL (32.0-36.0); Mean Corpuscular Hemoglobin 31.3 pg (27.0-31.0); Mean Corpuscular Volume 94.2 fL (78.0-102.0); Mean Platelet Volume 10.8 fl (9.2-11.8); Monocytes Absolute Auto 0.59 K/mm3 (0.10-0.90); Monocytes Percent Auto 7.9 % (2.0-11.0); Neutrophils Absolute Auto 4.9 K/mm3 (1.7-7.2); Neutrophils Percent Auto 66.3 % (50.0-70.0); Platelet Count Result 260 K/mm3 (150-420); Red Blood Count 3.96 M/mm3 (4.20-5.40); Red Cell Distribution Width 13.1 % (11.6-14.4); White Blood Count 7.4 K/mm3 (4.8-10.8)
[2022-10-16 13:29] LABS: Alanine Aminotransferase 30 U/L (14-59); Albumin Level 3.7 g/dL (3.4-5.0); Alkaline Phosphatase 105 U/L (46-116); Anion Gap 10 mmol/L (8-16); Aspartate Amino Transferase 18 U/L (15-37); Bilirubin Direct 0.1 mg/dL (0-0.2); Bilirubin,Total 0.5 mg/dL (0.00-1.00); Blood Urea Nitrogen 15 mg/dL (7-18); Calcium 8.9 mg/dL (8.5-10.1); Carbon Dioxide 28 mmol/L (21-32); Chloride 94 mmol/L (98-108); Estimated Glomerular Filt Rate 57; Glucose 119 mg/dL (70-99); Osmolality Calculated 275 mOsm/kg (285-295); Potassium 3.7 mmol/L (3.5-5.1); Sodium 132 mmol/L (136-145); Total Protein 7.4 g/dL (6.4-8.2)
== END 2022-10-16 12:44 | disposition home or self-care (01) ==
LOC: CHSLAB 12:45
PROVIDERS: PCP Internal Medicine; Visit Provider Internal Medicine Rheumatology
DX: Z51.81 Encounter for therapeutic drug level monitoring (principal)
CPT/HCPCS: 36415; 80048; 80076; 85025

== ENCOUNTER 2022-11-20 09:00 | Outpatient (CLI) | payer MEDICARE, SELFPAY | END 2022-11-20 09:01 | disposition home or self-care (01) | LOC: CHSCARD 09:00 | PROVIDERS: PCP Internal Medicine; Visit Provider Internal Medicine | DX: J45.40 Moderate persistent asthma, uncomplicated (principal); J44.9 Chronic obstructive pulmonary disease, unspecified | CPT/HCPCS: 94060; 94726; 94729 ==

== ENCOUNTER 2023-01-24 19:19 | Emergency (ER) | payer MEDICARE, SELFPAY ==
[2023-01-24 19:36] VITALS: BP 174/110; PULSE 69; RESP 20; TEMP 37.1; O2SAT 99
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
[2023-01-24] MEDS: TETANUS,DIPHTHERIA,AC PERTUSSIS ADULT 0.5 ML (ADACEL) IM (19:50)
[2023-01-24] MEDS: AMOXICILLIN/CLAVULANATE K 875-125 MG TAB 1 TABLET PO (20:27)
[2023-01-24] MEDS: LIDOCAINE HCL 1% LOCAL INJ 10 ML VIAL (20:28)
[2023-01-24 20:47] VITALS: BP 133/88; PULSE 88; RESP 20; TEMP 36.8; O2SAT 100
== END 2023-01-24 20:52 | disposition home or self-care (01) ==
PROVIDERS: Emergency Provider Emergency Medicine; PCP Internal Medicine
DX: S61.412A Laceration without foreign body of left hand, initial encounter (principal); E78.5 Hyperlipidemia, unspecified; Z87.891 Personal history of nicotine dependence; M06.9 Rheumatoid arthritis, unspecified; Z23 Encounter for immunization; W55.03XA Scratched by cat, initial encounter
CPT/HCPCS: 12004; 90471; 90715; 99283; 99284; A9270

== ENCOUNTER 2023-05-20 12:15 | Outpatient (CLI) | payer MEDICARE, SELFPAY ==
--- NOTE | ~2023-05-20 | MM_ITS ---
EXAMINATION: MM screening devyn BI w shanita HISTORY: Screening mammogram TECHNIQUE: Craniocaudal and mediolateral oblique 3-D tomosynthesis images were obtained and synthetic 2-D images were generated. CAD analysis was submitted and interpreted. COMPARISON: 10/28/2021 diagnostic right mammogram and complete right breast ultrasound examination BREAST PARENCHYMAL COMPOSITION: There are scattered areas of fibroglandular density. FINDINGS: There is no evidence of suspicious mass, calcification, or architectural distortion to sugg est malignancy in either breast. There has been no suspicious interval change. IMPRESSION: 1. No mammographic evidence of malignancy. 2. Recommend routine screening mammography in one year. BI-RADS Category 1: Negative Reviewed, dictated and finalized at location A.
== END 2023-05-20 12:16 | disposition home or self-care (01) ==
LOC: CHSIMG 12:17
PROVIDERS: PCP Internal Medicine; Visit Provider Internal Medicine
DX: Z12.31 Encounter for screening mammogram for malignant neoplasm of breast (principal)
CPT/HCPCS: 77063; 77067

== ENCOUNTER 2023-09-20 08:13 | Outpatient (CLI) | payer MEDICARE, SELFPAY ==
--- NOTE | ~2023-09-20 | US_ITS ---
EXAMINATION: US carotid duplex BI DATE: 09/20/2023 10:50 INDICATION: Dizziness. TECHNIQUE: Grayscale, color Doppler, and pulsed Doppler images of the cervical carotid arteries were obtained. The degree of vessel stenosis is placed in one of the following categories: normal, <50%, 5 0-69%, >=70% but less than near-occlusion, near-occlusion, or total occlusion. Note that percent sten osis relative to normal distal artery lumen diameter is indirectly measured from velocity measurement s as described by Omer, et al. Radiology 2003; 229:340-346. COMPARISON: None. FINDINGS: RIGHT: The right common carotid artery (CCA) peak systolic velocity (PSV) is 74 cm/s. The right internal car otid artery (ICA) PSV is 68 cm/s. The right ICA end-diastolic velocity (EDV) is 23 cm/s. The right IC A/CCA PSV ratio is 0.9. Grayscale and color Doppler images yield an estimate of <50% diameter reducti on from plaque in the ICA. There is antegrade flow in the right vertebral artery. LEFT: The left CCA PSV is 90 cm/s. The left ICA PSV is 67 cm/s. The left ICA EDV is 16 cm/s. The left ICA/C CA PSV ratio is 0.7. Grayscale and color Doppler images yield an estimate of <50% diameter reduction from plaque in the ICA. There is antegrade flow in the left vertebral artery. IMPRESSION: 1. <50% stenosis in the right internal carotid artery. 2. <50% stenosis in the left internal carotid artery. Reviewed, dictated and finalized at location E.
--- NOTE | 2023-09-20 08:25 | ECHO_ITS ---
Patient Info Name: Arlin Gonzalez Age: 73 years : 1950 Gender: Female Ht: 63 in Wt: 180 lbs BSA: 1.94 m2 HR: 66 bpm BP: 161 / 85 mmHg Heart Rhythm: Sinus Rhythm Technical Quality: Fair Exam Date: 09/20/2023 10:26 AM Exam Location: [facility] Patient Status: Outpatient Admit Date: 09/20/2023 Staff Ordering Physician: Kvng Doran MD Mower Sharpener: USR Attending Provider: Kvng Doran MD Exam Type: CA echo doppler color flow Study Info Indications - dizziness/Aortic stenosis Complete two-dimensional, color flow and Doppler transthoracic echocardiogram is performed. Summary 1. Complete two-dimensional, color flow and Doppler transthoracic echocardiogram is performed. 2. Left ventricular chamber dimension is normal. 3. Left ventricular systolic function is normal, estimated at 65-70%. 4. There is mild concentric increased left ventricular wall thickness. 5. The left ventricular diastolic function is normal. 6. E/e' 9 is minimally elevated. 7. The aortic valve is not well visualized. Cannot determine number of aortic valve leaflets. 8. There is very mild aortic valve stenosis based on a peak velocity of 262 cm/s, mean gradient of 12 mmHg, and aortic valve area of 2.2 cm2. 9. There is severe aortic valve sclerosis. 10. There is trace mitral valve regurgitation. 11. There is mild tricuspid valve regurgitation. 12. No pulmonary hypertension, estimated pulmonary arterial systolic pressure is 30 mmHg. Left Ventricle E/e' 9 is minimally elevated. Left ventricular chamber dimension is normal. Left ventricular systolic function is normal, estimated at 65-70%. There is mild concentric increased left ventricular wall thickness. The left ventricular diastolic function is normal. Right Ventricle Right ventricular systolic function is normal and with normal TAPSE 2.7 cm. Right ventricular chamber dimension is normal. Left Atria Left atrial chamber dimension is normal. Right Atria Right atrial chamber dimension is normal. Aortic Valve The aortic valve is not well visualized. Cannot determine number of aortic valve leaflets. There is very mild aortic valve stenosis based on a peak velocity of 262 cm/s, mean gradient of 12 mmHg, and aortic valve area of 2.2 cm2. There is severe aortic valve sclerosis. There is no aortic valve regurgitation. Pulmonic Valve There is no pulmonic regurgitation. Mitral Valve There is no mitral valve stenosis. There is trace mitral valve regurgitation. Tricuspid Valve There is mild tricuspid valve regurgitation. No pulmonary hypertension, estimated pulmonary arterial systolic pressure is 30 mmHg. Pericardium/Pleural There is no pericardial effusion. Inferior Vena Cava Normal inferior vena cava with >50% collapse upon inspiration consistent with normal right atrial pressure, 5 mmHg. Aorta The aortic root size at the sinus of Valsalva is normal. Left Ventricular Outflow Tract Name Value Normal LVOT 2D LVOT Diameter 2.1 cm LVOT Doppler LVOT Peak Velocity 135 cm/s LVOT Peak Gradient 7 mmHg LVOT Mean Gradient 4 mmHg LVOT VTI 38 cm LVOT
== END 2023-09-20 08:14 | disposition home or self-care (01) ==
LOC: CHSIMG 08:14
PROVIDERS: PCP Internal Medicine; Visit Provider Internal Medicine
DX: R42 Dizziness and giddiness (principal); I35.0 Nonrheumatic aortic (valve) stenosis; I65.23 Occlusion and stenosis of bilateral carotid arteries; I07.1 Rheumatic tricuspid insufficiency
CPT/HCPCS: 93306; 93880

== ENCOUNTER 2024-01-04 13:45 | Outpatient (CLI) | payer MEDICARE, SELFPAY ==
--- NOTE | ~2024-01-04 | DEXA_ITS ---
Bone Density Report Name: JOSELYN TINOCO Age: 73 Sex: Female Ethnicity: White Date of : 1950 Indication: postmenopausal; screening for osteoporosis; height loss; rheumatoid arthritis; Referring Provider: Kvng Doran Study: Bone densitometry was performed. Exam Date: January 04, 2024 Accession number: [id number] Bone Density: Region BMD T-score Z-score Classification AP Spine(L1, L2, L4) 1.162 1.2 3.4 Normal Femoral Neck (Left) 0.737 -1.0 0.9 Normal Total Hip (Left) 0.924 -0.1 1.5 Normal Femoral Neck (Right) 0.691 -1.4 0.5 Osteopenia Total Hip (Right) 0.795 -1.2 0.4 Osteopenia Femoral Neck Mean 0.714 -1.2 0.7 Osteopenia Total Hip Mean 0.860 -0.7 0.9 Normal World Health Organization criteria for BMD impression classify patients as: Normal (T-score at or above -1.0), Osteopenia (T-score between -1.0 and -2.5), or Osteoporosis (T-score at or below -2.5). 10-year Fracture Risk(1): Major Osteoporotic Fracture 12% Hip Fracture 1.9% Reported Risk Factors: [place] (), Neck BMD=0.691, BMI=34.4, rheumatoid arthritis (1) FRAX(R) Version 3.08. Fracture probability calculated for an untreated patient. Fracture probability may be lower if the patient has received treatment. Clinical Information Provided by Patient: Has rheumatoid arthritis Patient maximum height was 62 Menopause Age: 52 No regular weight bearing exercise Drinks caffeinated beverages Onset of menses at age 15 Number of children 7 Impression: The patient has low bone mass, based on the Right Femoral Neck T-score. Discussion: BONE DENSITY IS LOW AT ONE OR MORE SKELETAL SITES. This patient's lowest T-score is low at one or more skeletal sites. It meets the World Health Organization's (WHO) criteria for ?low bone mass? (T-score between -1.0 and -2.5). The patient's 10-year risk of fracture as calculated by FRAX is less than the threshold where pharmacological therapy is recommended by the National Osteoporosis Foundation (NOF). However, all treatment decisions require clinical judgment and consideration of individual patient factors, including patient preferences, comorbidities, previous drug use, risk factors not captured in the FRAX model (e.g., frailty, falls, vitamin D deficiency, increased bone turnover, interval significant decline in bone density) and possible under or overestimation of fracture risk by FRAX. The patient should follow a healthful lifestyle (good nutrition with adequate calcium and vitamin D, and appropriate weight-bearing exercise). Follow-Up: Consider repeating this study in 2 to 3 years to reassess this patient's status, or sooner if there is some new clinical indication. Reported by: Dr. Kelvin Tucker on 01/04/2024 2:14:00 PM. Reviewed, dictated and finalized at location A.
== END 2024-01-04 13:46 | disposition home or self-care (01) ==
LOC: CHSIMG 13:46
PROVIDERS: PCP Internal Medicine; Visit Provider Internal Medicine
DX: M85.89 Other specified disorders of bone density and structure, multiple sites (principal)
CPT/HCPCS: 77080

== ENCOUNTER 2024-03-28 11:52 | Outpatient (CLI) | payer MEDICARE, SELFPAY ==
[2024-03-28 12:15] LABS: Appearance Urine Clear (Clear); Basophils Absolute Auto 0.04 K/mm3 (0.00-0.10); Basophils Percent Auto 0.7 % (0.0-1.0); Bilirubin Urine Negative (Negative); Blood Urine Negative (Negative); Color Urine Light Yellow (Yellow); Eosinophils Absolute Auto 0.18 K/mm3 (0.02-0.50); Eosinophils Percent Auto 3.2 % (1.0-6.0); Glucose Urine UA Negative (Negative); Hematocrit 40.5 % (35.0-42.0); Hemoglobin 13.1 g/dL (11.7-13.8); Immature Granulocyte Absolute 0.01 K/mm3 (0.00-0.00); Immature Granulocyte Percent A 0.2 % (0.0-0.0); Ketones Urine Negative (Negative); Leukocyte Esterase Ur Trace (Negative); Lymphocytes Absolute Auto 2.05 K/mm3 (1.10-4.50); Lymphocytes Percent Auto 36.1 % (18.0-42.0); Mean Corpuscular HGB Conc 32.3 g/dL (32-36); Mean Corpuscular Hemoglobin 28.8 pg (27.0-31.0); Mean Platelet Volume 11.6 fl (9.2-11.8); Monocytes Absolute Auto 0.41 K/mm3 (0.10-0.90); Monocytes Percent Auto 7.2 % (2.0-11.0); Neutrophils Absolute Auto 2.99 K/mm3 (1.70-7.20); Neutrophils Percent Auto 52.6 % (50.0-70.0); Nitrate Urine Negative (Negative); Platelet Count Result 242 K/mm3 (150-420); Protein Urine Negative (Negative); Red Blood Count 4.55 M/mm3 (4.20-5.40); Red Cell Distribution Width 12.5 % (11.6-14.4); Urobilinogen Urine 0.2 mg/dL (0.2-1.0); White Blood Count 5.7 K/mm3 (4.8-10.8); pH Urine 7.5 (5.0-8.0)
[2024-03-28 12:25] LABS: Add Urine Microscopic? YES; Bacteria Urine Rare /hpf; RBC Urine None seen /hpf (0-2); WBC Urine None seen /hpf (0-3)
[2024-03-28 13:13] LABS: Alanine Aminotransferase 30 U/L (14-59); Albumin Level 3.6 g/dL (3.4-5.0); Alkaline Phosphatase 97 U/L (46-116); Anion Gap 6 mmol/L (4-12); Aspartate Amino Transferase 17 U/L (15-37); Bilirubin,Total 0.5 mg/dL (0.00-1.00); Blood Urea Nitrogen 20 mg/dL (7-18); CRP 0.7 mg/dL (0.0-0.9); Carbon Dioxide 31 mmol/L (21-32); Chloride 100 mmol/L (98-108); Cholesterol 247 mg/dL (0-200); Estimated Glomerular Filt Rate > 60; Glucose 87 mg/dL (70-99); HDL Direct 66 mg/dL (40-60); LDL Cholesterol Calculated 164 mg/dL (<130); Osmolality Calculated 285 mOsm/kg (285-295); Potassium 4.6 mmol/L (3.5-5.1); Sodium 137 mmol/L (136-145); Total Protein 7.3 g/dL (6.4-8.2); Triglycerides 87 mg/dL (0-150)
[2024-03-30 14:13] LABS: Vitamin D 25 Hydroxy 35 ng/mL (30-100)
[2024-03-31 12:08] LABS: Methylmalonic Acid 127 nmol/L (87-318)
== END 2024-03-28 11:53 | disposition home or self-care (01) ==
LOC: CHSLAB 11:57
PROVIDERS: PCP Internal Medicine; Visit Provider Internal Medicine
DX: E78.5 Hyperlipidemia, unspecified (principal); I10 Essential (primary) hypertension; E55.9 Vitamin D deficiency, unspecified
CPT/HCPCS: 36415; 80053; 80061; 81001; 82306; 83921; 84443; 85025; 86140

== ENCOUNTER 2025-01-31 09:38 | Outpatient (CLI) | payer MEDICARE, SELFPAY ==
--- NOTE | ~2025-01-31 | MM_ITS ---
EXAMINATION: MM screening devyn BI w shanita HISTORY: Screening mammogram, family history of breast cancer in her mother. TECHNIQUE: Craniocaudal and mediolateral oblique 3-D tomosynthesis images were obtained and synthetic 2-D images were generated. CAD analysis was submitted and interpreted. COMPARISON: 05/20/2023, 10/20/2021 BREAST PARENCHYMAL COMPOSITION:Not Dense. There are scattered areas of fibroglandular density. FINDINGS: No suspicious mass, calcification, or architectural distortion are identified in either ashvin ast to suggest malignancy. There has been no suspicious interval change. IMPRESSION: No mammographic evidence of malignancy. Recommend routine screening mammography in one year. BI-RADS Category 1: Negative Reviewed, dictated and finalized at location .
--- OUTSIDE RECORDS SUMMARY | 2025-01-31 10:27 | XMS_ITS | Clinical Summary ---
Author Organization [facility] Address [address] [place] [address] Care Team Providers Care Automated Access Systems Technician Name Role Phone Kvng Doran MD Primary Care Provider [phone] Allergies No known active allergies Medications HYDROcodone-jenny taminophen (NORCO) 5-325 mg per tabletIndicatio ns:Pain Take 1-2 tablets by mouth every 4 (four) hours as needed for pain Do not exceed 8 tablets/day. 12 tablet 03/11/2023 Active Active Problems Problem Noted Date Diagnosed Date Arthralgia of lower leg 04/07/2014 Overview (02/24/2017): JOINT PAIN-L/LEG Low back pain 04/07/2014 Overview (02/26/2017): LUMBAGO Surgical History Surgery Date Site/Laterality Comments JOINT REPLACEMENT Medical History Medical History Date Comments Hypertension High cholesterol Social History Tobacco Use Types Packs/Day Years Used Date Smoking Tobacco: Former Cigarettes Smokeless Tobacco: Never Tobacco Cessation:Counseling Given: Not Answered Alcohol Use Standard Drinks/Week Comments Never 0 (1 standard drink = 0.6 oz pur e alcohol) Personal Safety Answer Date Recorded Getting School Help Needed Not on file 03/18 Comments Unknown Sex and Gender Information Value Date Recorded Sex Assigned at Not on file 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 Gender Identity Not on file Sexual Orientation Not on file Obstetrics History Last Filed Vital Signs Vital Sign Reading Time Taken Comments Blood Pressure 141/104 03/11/2023 12:00 PM CDT Pulse 65 03/11/2023 12:00 PM CDT Temperature 36.8 C (98.3 F) 03/11/2023 12:00 PM CDT Respiratory Rate 18 03/11/2023 11:04 AM CDT Oxygen Saturation 95% 03/11/2023 12:00 PM CDT Inhaled Oxygen Concentration - - Weight 81.6 kg (180 lb) 03/11/2023 11:04 AM CDT Height 160 cm (5' 3 ) 03/11/2023 11:04 AM CDT Body Mass Index 31.89 03/11/2023 11:04 AM CDT Plan of Treatment Health Maintenance Due Date Last Done Comments Breast Cancer Screening-Mammogram 1952 Colon Cancer Screening-Colonoscopy 1950 Depression Screening 1952 Fall Risk Assessment 1952 Hepatitis C Screening 1952 Osteoporosis Screening-Bone Density Scan 1952 Hepatitis B Screening 1970 Well Visit 65+ 2017 Covid-19 Vaccine (5 - 2023-2 5 season) 2024 09/10/2022, 09/04/2021, 02/05/2021, Additional history exists Influenza Vaccine (#1) 2024 , 09/04/2021, 12/03/2020, Additional history exists DTaP/Tdap/Td Vaccine (3 - Td or Tdap) 01/24/2033 01/24/2023, 06/19/2008 Pneumococcal vaccine 65+ Completed 09/07/2019, 06/23 Zoster Vaccine Completed 12/04/2022, 09/22, 08/19/2016 Insurance [employer] HMO Care Teams Automated Access Systems Technician Relationship Specialty Start Date End Date Kvng Doran MD PCP - General 02/17/08
--- OUTSIDE RECORDS SUMMARY | 2025-01-31 10:27 | XMS_ITS | Clinical Summary ---
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 Gender Identity Not on file Sexual Orientation Not on file Plan of Treatment Health Maintenance Due Date Last Done Comments Colorectal Cancer Screening Colonoscopy (10 Years) 1952 Hepatitis C 1970 DTaP, Tdap and Td Vaccines ( 1 - Tdap) 1971 Mammogram Screening 1992 Zoster Vaccines (1 of 2) 2002 Dexa Scan (General) 2017 Pneumococcal Vaccine: 65+ Ye ars (1 of 1 - PCV) 2017 COVID-19 Vaccine (2023-2 5 season) 2024 Influenza Adult (#1) 2024 RSV Immunization or 60+ Years (1 - 1-dose 75+ series) 2027 Meningococcal B Vaccine Aged Out No l onger eligible based on patient's age to complete this topic Meningococcal Vaccine Aged Out No braden kandice eligible based on patient's age to complete this topic RSV Immunizations Under 20 Months Aged Out No longer eligible based on patient's age to complete this topic
--- OUTSIDE RECORDS SUMMARY | 2025-01-31 10:27 | XMS_ITS | Referral Summary ---
Author Organization [facility] Address [address] [place] [address] Care Team Providers Care Securities Sales Associate Name Role Phone Kvng Doran MD Primary Care Provider Allergies No known active allergies Medications HYDROcodone-jenny taminophen (NORCO) 5-325 mg per tabletIndicatio ns:Pain Take 1-2 tablets by mouth every 4 (four) hours as needed for pain Do not exceed 8 tablets/day. 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
== END 2025-01-31 09:39 | disposition home or self-care (01) ==
PROVIDERS: PCP Internal Medicine; Visit Provider Internal Medicine
DX: Z12.31 Encounter for screening mammogram for malignant neoplasm of breast (principal)
CPT/HCPCS: 77063; 77067

== ENCOUNTER 2025-04-17 09:18 | Day surgery (SDC) | payer MEDICARE, SELFPAY ==
[2025-04-10 08:55] VITALS: BMI 32.9
--- OUTSIDE RECORDS SUMMARY | 2025-04-17 00:20 | XMS_ITS | Referral Summary ---
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
--- OUTSIDE RECORDS SUMMARY | 2025-04-17 00:21 | XMS_ITS | Clinical Summary ---
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
--- NOTE | 2025-04-17 08:03 | SUR.PREOP ---
Pt called this am to say she had a family emergency and would have to cancel today. She said she would call the office to reschedule.
--- NOTE | 2025-04-17 12:37 | WPDANESEPPF ---
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 Patient Data Age: 75 Gender: F Height: 1.57 m Weight: 81.7 kg Allergies Allergy/AdvReac Type Severity Reaction Status Date / Time morphine Allergy Intermediate Nausea Verified 04/10/25 08:52 Home Medications ?Medication ?Instructions ?Recorded ?Confirmed ?Type pantoprazole 40 mg tablet,delayed See Rx Instructions .Route 06/30/22 04/10/25 Rx release .COMPLEX #180 tabs atorvastatin 40 mg tablet 40 mg PO QHS #90 tabs 08/15/22 04/10/25 Rx losartan 100 See Rx Instructions .Route 12/30/22 04/10/25 Rx mg-hydrochlorothiazide 25 mg tablet .COMPLEX #90 tabs Patient hx anesthesia problems: none Family hx anesthesia problems: none Results Review: All pre-operative results and documents have been reviewed as part of the pre-operative evaluation. [facility] Past Medical History Medical History (Reviewed 10/26/23 @ 13:46 by Aleksandra Hassan [facility]) Chronic GERD Colon cancer screening Hyperlipidemia Obesity Osteoarthritis Reflux esophagitis Rheumatoid arthritis Family History Family History Sibling Malignant neoplasm of prostate Mother Family history of malignant neoplasm of breast in first degree relative Other Diabetes mellitus Family history of alcoholism Family history of arthritis Family history of malignant neoplasm Family history of mental disorder Social History Social History (Reviewed 10/26/23 @ 13:46 by Aleksandra Hassan [facility]) Smoking packs per day: 1 Smoking cigarettes per day: 20.0 Years smoked: 7 Smoking pack-years: 7.00 Smoking status: Never smoker Tobacco type: cigarettes Smoking end date: 11/22/86 Alcohol intake: never Substance use: never Substance use type: does not use Living arrangements: with family Gender identity (if verbalized by the patient): Female Spiritual care concerns: No Anes - Eval Final PreProcedure Day of Procedure 04/17/25 12:37 Patient weight: normal Heart: regular rate and rhythm and murmur Lungs: clear to auscultation Airway: Mallampati scale class II Neurological: alert and oriented Last oral intake: >/= 8 hours ASA classification: III Emergent: no Anesthetic plan: proceed Anesthesia type and monitoring: general GIVS and standard monitoring Results Review: All pre-operative results and documents have been reviewed as part of the pre-operative evaluation. Informed Consent: The patient's anesthetic plan and its attendant risks and benefits were discussed with the patient/family/POA. Questions were solicited and answers provided to the satisfaction of the patient/family/POA.
[2025-04-17 12:41] VITALS: BP 146/98; PULSE 65; RESP 16; TEMP 36.9; O2SAT 97; BMI 33.0
[2025-04-17] MEDS: LACTATED RINGERS 1,000 ML 150 ML IV CONT (12:53)
--- NOTE | 2025-04-17 13:37 | P.HP_ITS ---
History of Present Illness History of Present Illness Consent: Risks, benefits, and alternatives have been discussed and questions answered. Patient agrees to proceed with procedure. 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 Review of Systems Review of Systems: All systems reviewed & are unremarkable except as noted in HPI and below PMFSH Past Medical History Medical History (Updated 04/17/25 @ 13:37 by Neo Delgado MD) Garcia esophagus Reflux esophagitis Colon cancer screening Obesity Rheumatoid arthritis Osteoarthritis Chronic GERD Hyperlipidemia Family History Family History Sibling Malignant neoplasm of prostate Mother Family history of malignant neoplasm of breast in first degree relative Other Diabetes mellitus Family history of alcoholism Family history of arthritis Family history of malignant neoplasm Family history of mental disorder Social History Social History Smoking packs per day: 1 Smoking cigarettes per day: 20.0 Years smoked: 7 Smoking pack-years: 7.00 Smoking status: Never smoker Tobacco type: cigarettes Smoking end date: 11/22/86 Alcohol intake: never Substance use: never Substance use type: does not use Living arrangements: with family Gender identity (if verbalized by the patient): Female Spiritual care concerns: No Meds Home Medications and Allergies Home Medications ?Medication ?Instructions ?Recorded ?Confirmed ?Type pantoprazole 40 mg tablet,delayed See Rx Instructions .Route 06/30/22 04/17/25 Rx release .COMPLEX #180 tabs atorvastatin 40 mg tablet 40 mg PO QHS #90 tabs 08/15/22 04/17/25 Rx losartan 100 See Rx Instructions .Route 12/30/22 04/17/25 Rx mg-hydrochlorothiazide 25 mg tablet .COMPLEX #90 tabs Allergies Allergy/AdvReac Type Severity Reaction Status Date / Time morphine Allergy Intermediate Nausea Verified 04/17/25 12:39 Vital Signs Vital Signs - 24 hr 04/17/25 12:41 Temperature 98.4 F Pulse Rate 65 Respiratory Rate 16 Blood Pressure 146/98 H Pulse Oximetry 97 Oxygen Delivery Room Air Exam Const: General: comfortable and no acute distress HENMT: Face/Nose/Sinus: Normal nares present Eyes: General: appearance normal, both eyes and all related structures Neck: Neck: no JVD Resp: Auscultation: clear to auscultation bilaterally Cardio: Rate: regular rate Rhythm: regular rhythm GI: Inspection: non-distended GI Palp: Yes Soft to palpation Skin: General skin exam: normal color Neuro: General: gait normal Speech: normal speech Extrem: General: normal to inspection Psych: Mental Status: mental status grossly normal Assessment and Plan Assessment and plan (1) Garcia esophagus: Code(s): K22.70 - 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
[2025-04-17 13:50] VITALS: BP 94/58; PULSE 61; RESP 19; O2SAT 93
[2025-04-17 14:00] VITALS: BP 127/73; PULSE 60; RESP 20; O2SAT 98
[2025-04-17 14:10] VITALS: BP 143/80; PULSE 61; RESP 16; O2SAT 99
== END 2025-04-17 14:20 | disposition home or self-care (01) ==
PROVIDERS: PCP Internal Medicine; Referring Provider Internal Medicine Gastroenterology; Visit Provider Internal Medicine Gastroenterology
PROC: 0DJ08ZZ Inspection of Upper Intestinal Tract, Via Natural or Artificial Opening Endoscopic (ICD-10-PCS; CPT 43239; principal; 2025-04-17 13:45)
DX: K22.70 Barrett's esophagus without dysplasia (principal); K44.9 Diaphragmatic hernia without obstruction or gangrene; K21.9 Gastro-esophageal reflux disease without esophagitis; E78.5 Hyperlipidemia, unspecified; M19.90 Unspecified osteoarthritis, unspecified site; M06.9 Rheumatoid arthritis, unspecified; Z87.891 Personal history of nicotine dependence; Z80.42 Family history of malignant neoplasm of prostate; Z80.3 Family history of malignant neoplasm of breast
CPT/HCPCS: 43239; 88305; J2003; J2704; J7120